=== PATIENT | male | born 1990 | race Caucasian/White ===

== ENCOUNTER 2016-03-18 15:50 | Emergency (ER) | payer MEDICAID, OTHER ==
[2016-03-18] MEDS ORDERED: SODIUM CHLORIDE 0.9% 1,000 ML ONE (16:32)
--- NOTE | 2016-03-18 16:53 | RAD ---
03/18/2016 4:49 PM CHEST - 2 VIEWS History: Right-sided chest pain. No known injury. Comparison: 05/12/2008 Findings: Two views of the chest are obtained. The lungs are clear with out effusion or pneumothorax. The cardiomediastinal silhouette is unremarkable.. The osseous structures are intact.. IMPRESSION: No acute intrathoracic process.
[2016-03-18 16:54] LABS: ABSOLUTE NEUTROPHIL COUNT 3.8 K/mm3 (1.8-7.7); BASO % 0.3 % (0.2-1.0); EOS # 0.2 (0.0-0.5); EOS % 2.8 % (0.9-2.9); HEMATOCRIT 46.2 % (32.0-52.0); HEMOGLOBIN 15.6 gm/l (14.0-18.0); IMM NEUT% 0.7 % (0-1); LYMPH # 1.7 (1.0-4.8); LYMPH % 28.5 % (15-45); MEAN CELL VOLUME 90.1 fl (80.0-94.0); MEAN CORPUSCULAR HEMOGLOBIN 30.4 pg (27.0-31.0); MEAN CORPUSCULAR HGB CONC 33.8 g/dl (33.0-37.0); MEAN PLATELET VOLUME 9.6 fl (7.4-10.4); MONO # 0.3 (0.0-0.8); MONO % 4.8 % (4-12); NEUT % 62.9 % (43-75); PLATELET COUNT 228 K/mm3 (130-400); RED CELL DISTRIBUTION WIDTH 11.6 % (11.5-14.5)
[2016-03-18 16:56] LABS: ALB/GLOB RATIO 1.7 (>1.0); ALBUMIN 4.7 gm/dL (3.5-5.7); CALCIUM 9.7 mg/dL (8.6-10.3)
[2016-03-18] MEDS ORDERED: IBUPROFEN 600 MG TABLET ONE (17:28)
== END 2016-03-18 17:54 | disposition home or self-care (01) ==
LOC: ED 15:50
DX: R07.9 Chest pain, unspecified (principal); R09.1 Pleurisy; J45.909 Unspecified asthma, uncomplicated
CPT/HCPCS: 83690; 85379; 85025; 80053; 84484; 71020; 99284 ×2; 96360; 93005; A9270; J7030